=== PATIENT | female | born 1955 | race Caucasian/White ===

== ENCOUNTER → 2020-12-01 11:06 | Outpatient (CLI) | payer OTHER, SELFPAY ==
--- NOTE | 2020-12-01 11:11 | DI.RAD.S_ITS ---
PROCEDURE: XR FINGER LT MIN 2V INDICATIONS: L 4th finger MCP joint TECHNIQUE: AP hand, 2 views of the 4th digit acquired. COMPARISON: None. FINDINGS: Bones: There is a mildly displaced fracture of the 4th metacarpal shaft proximally with mild impaction and dorsal angulation. No dislocations. There is severe degeneration at the 5th distal interphalangeal joint with joint space narrowing, subchondral sclerosis, and osteophytosis. Milder degeneration also demonstrated at the 2nd and 3rd distal interphalangeal joints. There is moderate degeneration of the 1st carpometacarpal joint. No suspicious bony lesions. Soft tissues: No suspicious soft tissue calcifications. IMPRESSION: 1. Mildly impacted and angulated fracture of the 4th metacarpal shaft proximally. 2. Osteoarthritic changes of the hand including severe degeneration of the 5th DIP joint and moderate degeneration at the 1st carpometacarpal joint. Dictated by: Joel Jin M.D. on 12/01/2020 at 12:48 Approved by: Joel Jin M.D. on 12/01/2020 at 12:51
== END ==
PROVIDERS: Referring Provider Nurse Practitioner; Visit Provider Nurse Practitioner
DX: S62.324A Displaced fracture of shaft of fourth metacarpal bone, right hand, initial encounter for closed fracture (principal); X58.XXXA Exposure to other specified factors, initial encounter
CPT/HCPCS: 73140